=== PATIENT | male | born 1990 | race Caucasian/White ===

== ENCOUNTER 2016-08-21 21:06 | Emergency (ER) | payer BC ==
[~2016-08-21] VITALS: Ht 175.3 cm; Wt 117.7 kg
[~2016-08-21 21:06] MED LIST: AMOXICILLIN500 MG PO; ATIVAN1 MG PO; AUGMENTIN500 MG PO; CLONAZEPAM1 MG PO; ESCITALOPRAM OX10 MG PO; FENOFIBRATE145 M1 PO; FLEXERIL10 MG PO; FLEXERIL5 MG PO; LIDODERM 5% P1 PATCH TD; LIPOFEN150 MG PO; LISINOPRIL10 MG PO; MOTRIN600 MG PO; MOTRIN800 MG PO; NAPROSYN500 MG PO; NAPROXEN500 MG PO; NO HOME MED; OMEPRAZOLE40 M1 PO; OXYCODONE HCL5 MG PO; PERCOCET 10/1 TABLET PO; PREDNISONE10 M1 PO; PRILOSEC40 MG PO; PROMETHAZINE HC25 M1 PO; ULTRAM50 MG PO; ZITHROMAX500 MG PO; ZOFRAN4 MG PO
[2016-08-21 21:50] LABS: HEMATOCRIT 42.3 % (38.0-50.0); MCH 27.6 PG (29.0-34.0); MCHC 32.9 G/DL (30.0-36.0); MCV 84.1 FL (86-99); MEAN PLAT.VOLUME 10.2 uM^3 (9.0-12.4); PLATELET COUNT 267 K/uL (156-360); RBC DIS.WIDTH-CV 13.1 % (11.8-14.6); RBC DIS.WIDTH-SD 40.1 % (39-53); RED BLOOD COUNT 5.03 M/uL (4.00-5.50); WHITE BLOOD COUNT 16.5 K/uL (4.1-10.2)
[2016-08-21 21:59] LABS: CHLORIDE 104 mEq/L (99-109); POTASSIUM 3.8 mEq/L (3.7-5.4); SODIUM 138 mEq/L (136-147)
[2016-08-21 22:01] LABS: GLUCOSE 109 mg/dL (70-99)
[2016-08-21 22:02] LABS: ANION GAP 11 MEQ/L (2-14)
[2016-08-21 22:05] LABS: GFR ESTIMATE (CALCULATED) > 59 mL/min/
[2016-08-21 22:06] LABS: UREA NITROGEN (BUN) 10 mg/dL (9-23)
[2016-08-21 22:10] LABS: TROP-I INTERPRETATION NEGATIVE; TROPONIN-I < 0.01 ng/mL (0.0-0.30)
[2016-08-21 22:39] LABS: TOTAL BILIRUBIN 0.5 mg/dL (0.0-1.0)
[2016-08-21 22:40] LABS: ALKALINE PHOSPHATASE 75 IU/L (3-129)
[2016-08-21 22:43] LABS: DIRECT BILIRUBIN 0.2 mg/dL (0.0-0.3)
[2016-08-21 22:44] LABS: LIPASE 25 U/L (1.0-51.0)
[2016-08-21 23:24] LABS: INFLUENZA A VIRAL ANTIGEN NEGATIVE; INFLUENZA B VIRAL ANTIGEN NEGATIVE
[2016-08-21 23:25] LABS: ADD MIUA? NO; BILIRUBIN NEGATIVE; BLOOD NEGATIVE; COLOR STRAW ((YELLOW)); GLUCOSE (STRIP) NEGATIVE; KETONES NEGATIVE; LEUKOCYTES NEGATIVE; NITRITE NEGATIVE; PROTEIN (STRIP) NEGATIVE; SPECIFIC GRAVITY 1.009 (1.000-1.030); UCUL ADDED? NO; UROBILINOGEN 0.2 MG/DL (0.2-1.0)
[2016-08-22] MEDS ORDERED: ZOFRAN8 MG PO (00:11)
[2016-08-22] MEDS ORDERED: BENTYL20 MG PO (00:11)
[2016-08-22 00:34] VITALS: BP 117/52
== END 2016-08-22 00:35 | disposition home or self-care (01) ==
LOC: EME 21:06
PROVIDERS: Emergency Medicine
DX: B34.9 Viral infection, unspecified (principal); R11.2 Nausea with vomiting, unspecified; R74.8 Abnormal levels of other serum enzymes; I10 Essential (primary) hypertension; K21.9 Gastro-esophageal reflux disease without esophagitis
CPT/HCPCS: 71020; 74177; 80048; 80076; 81003; 83605; 83690; 84484; 85027; 87040; 87502; 87651 90; 93005; 99281; 99285; J7030

== ENCOUNTER 2017-04-19 07:38 | Emergency (ER) | payer BC ==
[~2017-04-19] VITALS: Ht 177.8 cm; Wt 121.9 kg
[~2017-04-19 07:38] MED LIST changes: +BENTYL20 MG PO; +ZOFRAN8 MG PO
[2017-04-19] MEDS ORDERED: TRAMADOL HCL50 MG PO (11:34)
[2017-04-19] MEDS ORDERED: NAPROSYN500 MG PO (11:34)
[2017-04-19 11:46] VITALS: BP 118/72
== END 2017-04-19 11:47 | disposition home or self-care (01) ==
LOC: EME 07:38
PROC: 3E0T3BZ Introduction of Anesthetic Agent into Peripheral Nerves and Plexi, Percutaneous Approach (ICD-10-PCS; principal; 2017-04-19)
DX: K08.89 Other specified disorders of teeth and supporting structures (principal); I10 Essential (primary) hypertension; K21.9 Gastro-esophageal reflux disease without esophagitis; F41.9 Anxiety disorder, unspecified; Z98.811 Dental restoration status; Z86.19 Personal history of other infectious and parasitic diseases
CPT/HCPCS: 99281; 99284

== ENCOUNTER 2017-09-14 11:24 | Emergency (ER) | payer BC ==
[~2017-09-14] VITALS: Ht 175.3 cm; Wt 122.4 kg
[~2017-09-14 11:24] MED LIST changes: +TRAMADOL HCL50 MG PO
[2017-09-14] MEDS ORDERED: VYVANSE30 MG PO (11:34)
[2017-09-14] MEDS ORDERED: VALSARTAN160 MG PO (11:34)
[2017-09-14 12:26] LABS: HEMOGLOBIN 13.5 G/DL (12.5-16.6); MCH 28.2 PG (29.0-34.0); MCHC 33.8 G/DL (30.0-36.0); MCV 83.5 FL (86-99); PLATELET COUNT 236 K/uL (156-360); RBC DIS.WIDTH-CV 12.9 % (11.8-14.6); RBC DIS.WIDTH-SD 39.6 % (39-53); RED BLOOD COUNT 4.79 M/uL (4.00-5.50); WHITE BLOOD COUNT 9.2 K/uL (4.1-10.2)
[2017-09-14 12:32] LABS: APPEARANCE CLEAR ((CLEAR)); BILIRUBIN NEGATIVE; BLOOD NEGATIVE; COLOR STRAW ((YELLOW)); GLUCOSE (STRIP) NEGATIVE; KETONES NEGATIVE; LEUKOCYTES NEGATIVE; NITRITE NEGATIVE; PROTEIN (STRIP) NEGATIVE; SPECIFIC GRAVITY 1.008 (1.000-1.030); UROBILINOGEN 0.2 MG/DL (0.2-1.0)
[2017-09-14 12:34] LABS: ALBUMIN 4.5 g/dL (3.2-4.8)
[2017-09-14 12:35] LABS: CHLORIDE 103 mEq/L (99-109); POTASSIUM 3.7 mEq/L (3.7-5.4); SODIUM 136 mEq/L (136-147)
[2017-09-14 12:37] LABS: GLUCOSE 138 mg/dL (70-99); TOTAL PROTEIN 8.7 g/dL (6.4-8.3)
[2017-09-14 12:39] LABS: TOTAL BILIRUBIN 0.5 mg/dL (0.0-1.0)
[2017-09-14 12:40] LABS: ALKALINE PHOSPHATASE 69 IU/L (3-129)
[2017-09-14 12:41] LABS: CREATININE 0.8 mg/dL (0.6-1.3); GFR ESTIMATE (CALCULATED) > 59 mL/min/ (58.99-99999)
[2017-09-14 12:42] LABS: AST (GOT) 39 IU/L (2-34); UREA NITROGEN (BUN) 7 mg/dL (9-23)
[2017-09-14 12:44] LABS: ALT (GPT) 106 IU/L (3-49)
[2017-09-14] MEDS ORDERED: ZOFRAN ODT8 MG PO (13:17)
[2017-09-14 13:46] VITALS: BP 138/76
== END 2017-09-14 13:46 | disposition home or self-care (01) ==
LOC: EME 11:24
PROVIDERS: Physician Assistant
DX: R11.2 Nausea with vomiting, unspecified (principal); B34.9 Viral infection, unspecified; J02.9 Acute pharyngitis, unspecified; R50.9 Fever, unspecified; R51 Headache; R19.7 Diarrhea, unspecified; I10 Essential (primary) hypertension
CPT/HCPCS: 80053; 81003; 85027; 87651 90; J1885; J7030

== ENCOUNTER 2017-10-31 11:43 | Emergency (ER) | payer BC ==
[~2017-10-31] VITALS: Ht 175.3 cm; Wt 121.7 kg
[~2017-10-31 11:43] MED LIST changes: +VALSARTAN160 MG PO; +VYVANSE30 MG PO; +ZOFRAN ODT8 MG PO
[2017-10-31 13:51] VITALS: BP 131/86
== END 2017-10-31 13:53 | disposition home or self-care (01) ==
LOC: EME 11:43
DX: I10 Essential (primary) hypertension (principal); R51 Headache; R00.0 Tachycardia, unspecified; K21.9 Gastro-esophageal reflux disease without esophagitis; F41.9 Anxiety disorder, unspecified; Z98.890 Other specified postprocedural states
CPT/HCPCS: 93005; 99281; 99283